=== PATIENT | male | born 1970 | race Caucasian/White ===

== ENCOUNTER 2018-09-17 11:13 | Observation (INO) | payer BC, OTHER ==
[2018-09-17 11:25] VITALS: BMI 30.6
[2018-09-17] MEDS ORDERED: SODIUM CHLORIDE 1,000 ML IV ONE (12:17)
[2018-09-17] MEDS ORDERED: ASPIRIN 81 MG CHEWABLE TABLETS PO ONE (12:17)
--- NOTE | 2018-09-17 12:26 | PDOC ---
History of Present Illness - General History Source: Patient Exam Limitations: No Limitations - History of Present Illness Initial Comments: 09/17/18 12:27 The patient is a 48 year old male with a past medical history of HTN, HLD, SVT s /p ablation, and borderline COPD (restrictive type) sent in today from Dr. Faustin's for evaluation of 2 months of chest pain and shortness of breath. The patient reports that his chest pain and shortness of breath has been getting worse over the past week, notes dyspnea on exertion, pain on inhalation , notes associated cough and chills, and is worse with positional changes. He reports traveling to [place] in 04/24 and reports being diagnosed with bronchitis by a doctor over there. 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 He notes getting a stress test in 03/[address] Dawson which had no findings. Patient denies headache, lightheadedness. Denies fever. Denies nausea, vomiting , diarrhea, abdominal pain. Denies lower extremity edema. Allergies: NKA Social history: Patient reports that he quit smoking tobacco in 2013 but started to smoke again in 02/21 PCP: So Carrillo <Chas Rodríguez - Last Filed: 09/17/18 12:38> <Arron Padilla - Last Filed: 09/17/18 15:28> - General Chief Complaint: Chest Pain Stated Complaint: CHEST PAIN Time Seen by Provider: 09/17/18 11:32 Past History <Chas Rodríguez - Last Filed: 09/17/18 12:38> - Past Medical History Asthma: Yes COPD: Yes CHF: No HTN: Yes Hypercholesterolemia: Yes - Surgical History Gastric Stapling: No - Immunization History Immunization Up to Date: No - Suicide/Smoking/Psychosocial Hx Smoking History: Never smoked Have you smoked in the past 12 months: No Number of Cigarettes Smoked Daily: 5 Information on smoking cessation initiated: No Hx Alcohol Use: No Drug/Substance Use Hx: No Substance Use Type: None <Arron Padilla - Last Filed: 09/17/18 15:28> - Past Medical History Allergies/Adverse Reactions: Allergies Allergy/AdvReac Type Severity Reaction Status Date / Time No Known Allergies Allergy Verified 07/22/15 15:18 Home Medications: Ambulatory Orders NK [No Known Home Medication] 07/22/15 Review of Systems - Review of Systems Able to Perform ROS?: Yes Comments:: 09/17/18 12:27 GENERAL/CONSTITUTIONAL: +chills. No fever. No weakness. HEAD, EYES, EARS, NOSE AND THROAT: No change in vision. No ear pain or discharge. No sore throat. CARDIOVASCULAR: +chest pain. +dyspnea. +dyspnea on exertion RESPIRATORY: +cough. +wheezing. No hemoptysis. GASTROINTESTINAL: No nausea, vomiting, diarrhea or constipation. GENITOURINARY: No dysuria, frequency, or change in urination. MUSCULOSKELETAL: No joint or muscle swelling or pain. No neck or back pain. SKIN: No rash NEUROLOGIC: No headache, vertigo, loss of consciousness, or change in strength/ sensation. ENDOCRINE: No increased thirst. No abnormal weight change. HEMATOLOGIC/LYMPHATIC: No anemia, easy bleeding, or history of blood clots. ALLERGIC/IMMUNOLOGIC: No hives or skin allergy. <Chas Rodríguez - Last Filed: 09/17/18 12:38> - Review of Systems Constitutional: No: Chills, Fever, Unintentional Wgt. Loss HEENTM: No: Nose Congestion, Throat Pain Respiratory: Yes: Cough, Shortness of Breath, SOB with Exertion Cardiac (ROS): Yes: Chest Pain. No: Edema, Syncope ABD/GI: No: Diarrhea, Nausea, Vomiting Neurological: No: Headache All Other Systems: Reviewed and Negative <Arron Padilla - Last Filed: 09/17/18 15:28> *Physical Exam - Vital Signs Last Vital Signs Temp Pulse Resp BP Pulse Ox 98.0 F 74 16 158/77 95 09/17/18 11:22 09/17/18 11:22 09/17/18 11:22 09/17/18 11:22 09/17/18 11:22 - Physical Exam Comments: 09/17/18 12:29 GENERAL: The patient is awake, alert, and fully oriented, in no acute distress. HEAD: Normal with no signs of trauma. EYES: Pupils equal, round and reactive to light, extraocular movements intact, sclera anicteric, conjunctiva clear with no pallor. ENT: Ears normal, nares patent, oropharynx clear without exudates. Moist mucous membranes. CHEST: +reproducible tenderness across the chest. NECK: Normal range of motion, supple without lymphadenopathy, JVD, or masses. LUNGS: +slight crackles at right base. Breath sounds equal. HEART: Regular rate and rhythm, normal S1 and S2 without murmur or rub. ABDOMEN: Soft/nontender/nondistended. BS wnl. No guarding or rebound. No palpable masses. No hepatosplenomegaly. EXTREMITIES: Normal range of motion, no edema. No clubbing or cyanosis. No cords, erythema, or tenderness. NEUROLOGICAL: Cranial nerves II through XII grossly intact. Normal speech, normal gait. PSYCH: Normal mood, normal affect. SKIN: Warm, Dry, normal turgor, no rashes or lesions noted. <Chas Rodríguez - Last Filed: 09/17/18 12:38> - Vital Signs Last Vital Signs Temp Pulse Resp BP Pulse Ox 98.0 F 74 16 158/77 95 09/17/18 11:22 09/17/18 11:22 09/17/18 11:22 09/17/18 11:22 09/17/18 11:22 <Arron Padilla - Last Filed: 09/17/18 15:28> Moderate Sedation - Procedure Monitoring Vital Signs: Procedure Monitoring Vital Signs Temperature 98.0 F 09/17/18 11:22 Pulse Rate 74 09/17/18 11:22 Respiratory Rate 16 09/17/18 11:22 Blood Pressure 158/77 09/17/18 11:22 O2 Sat by Pulse Oximetry (%) 95 09/17/18 11:22 <Chas Rodríguez - Last Filed: 09/17/18 12:38> - Procedure Monitoring Vital Signs: Procedure Monitoring Vital Signs Temperature 98.0 F 09/17/18 11:22 Pulse Rate 74 09/17/18 11:22 Respiratory Rate 16 09/17/18 11:22 Blood Pressure 158/77 09/17/18 11:22 O2 Sat by Pulse Oximetry (%) 95 09/17/18 11:22 <Arron Padilla - Last Filed: 09/17/18 15:28> Heart Score/ECG Review - History History: Moderately suspicious - Electrocardiogram EKG: Normal - Age Age: 45-65 - Risk Factors Based on the list above the patient has:: 1-2 risk factors - Troponin Troponin: </= normal limit - Score Heart Score - Total: 3 #1 ECG reviewed & interpreted by me at: 11:18 General ECG Interpretation: Sinus Rhythm, Normal Rate (73), Normal Intervals ( qtc 429), No acute ischemic changes Compared to previous ECG there are: No significant change (c/w EKG same day at 10:36 from PCP office) <Arron Padilla - Last Filed: 09/17/18 15:28> ED Treatment Course - LABORATORY CBC & Chemistry Diagram: 09/17/18 12:30 09/17/18 12:30 - RADIOLOGY Radiology Studies Ordered: Category Date Time Status CHEST CTA [CT] Stat CT Scan 09/17/18 12:19 Ordered CHEST PA & LAT [RAD] Stat Radiology 09/17/18 12:20 Ordered <Arron Padilla - Last Filed: 09/17/18 15:28> Medical Decision Making - Medical Decision Making 09/17/18 12:24 48-year-old male with history of hypertension and high cholesterol presents with 2 months of crescendo exertional chest pain and dyspnea on exertion, peaked today with worsening chest pain. Reportedly had normal stress test about 6 months ago, reports associated musculoskeletal pain and pleuritic pain with his symptoms. Question ACS versus primary pulmonary pathology (question reactive airway versus bronchitis) versus musculoskeletal versus anxiety. Given risk factors, will need cardiac workup EKG, chest x-ray Aspirin Perform CTA chest given travel last 3 months and worsening dyspnea on exertion Admission for cardiac workup 09/17/18 15:27 labs wnl, including trop. Cr normal so will proceed directly to CTA chest (defer cxr which wasn't performed yet). Pt comfortable and eating a sandwich, cp free. Accepted for obs tele admission by Dr. Sanchez, covering Dr. Queen - signout given to Dr. George <Arron Padilla - Last Filed: 09/17/18 15:28> *DC/Admit/Observation/Transfer <Chas Rodríguez - Last Filed: 09/17/18 12:38> - Discharge Dispostion Decision to Admit order: Yes <Arron Padilla - Last Filed: 09/17/18 15:28> Diagnosis at time of Disposition: Precordial chest pain - Discharge Dispostion Condition at time of disposition: Stable - Referrals Referrals: So Carrillo [Primary Care Provider] - - Patient Instructions - Post Discharge Activity
[2018-09-17] MEDS ORDERED: ASPIRIN 81 MG CHEWABLE TABLETS ONE (12:31)
[2018-09-17 13:10] LABS: BASO % 0.4 % (0-2.0); EOS % 3.8 % (0-4.5); HEMATOCRIT 42.9 % (35.4-49); HEMOGLOBIN 14.8 GM/dL (11.7-16.9); LYMPH % 47.3 % (8-40); MCH 29.5 pg (25.7-33.7); MCHC 34.4 g/dl (32.0-35.9); MEAN CELL VOLUME 85.9 fl (80-96); MEAN PLT VOLUME 10.6 fl (7.5-11.1); MONO % 4.9 % (3.8-10.2); NEUT % 43.6 % (42.8-82.8); PLATELET COUNT 170 K/MM3 (134-434); RDW 12.6 % (11.9-15.9); WHITE BLOOD COUNT 6.8 K/mm3 (4.0-10.0)
[2018-09-17 13:28] LABS: INR 0.98 (0.83-1.09); PROTHROMBIN TIME (PATIENT) 11.6 SEC (9.7-13.0)
[2018-09-17 13:49] LABS: ALBUMIN 3.8 g/dl (3.4-5.0); ALK PHOS 124 U/L (45-117); ANION GAP 6 MMOL/L (8-16); BILIRUBIN,TOTAL 0.3 mg/dL (0.2-1); BLOOD UREA NITROGEN 16 mg/dL (7-18); CALCIUM 8.4 mg/dL (8.5-10.1); CHLORIDE 105 mmol/L (98-107); CO2 28 mmol/L (21-32); GLUCOSE,RANDOM 115 mg/dL (74-106); MAGNESIUM 2.2 mg/dL (1.8-2.4); POTASSIUM 3.9 mmol/L (3.5-5.1); SGOT/AST 23 U/L (15-37); SGPT/ALT 37 U/L (13-61); SODIUM 138 mmol/L (136-145); TOT PROT 7.6 g/dl (6.4-8.2)
--- NOTE | 2018-09-17 16:34 | HP ---
Admitting History and Physical - Admission Chief Complaint: came in from dr nathan office for chest pain History of Present Illness: he patient is a 48 year old male with a past medical history of HTN, HLD, SVT s/ p ablation, and borderline COPD (restrictive type) sent in today from Dr. Faustin's for evaluation of 2 months of chest pain and shortness of breath. The patient reports that his chest pain and shortness of breath has been getting worse over the past week, notes dyspnea on exertion, pain on inhalation , notes associated cough and chills, and is worse with positional changes. He reports traveling to [place] in 04/24 and reports being diagnosed with bronchitis by a doctor over there. 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 He notes getting a stress test in 03/[address] Dawson which had no findings. per patient his shortness of breath and chest pain getting worse and worse on deep inspiration, History Source: Patient, Medical Record - Past Medical History Cardiovascular: Yes: HTN, Hyperlipdemia Pulmonary: Yes: COPD - Smoking History Smoking history: Never smoked Have you smoked in the past 12 months: No Aproximately how many cigarettes per day: 5 - Alcohol/Substance Use Hx Alcohol Use: No Home Medications - Allergies Allergies/Adverse Reactions: Allergies Allergy/AdvReac Type Severity Reaction Status Date / Time No Known Allergies Allergy Verified 07/22/15 15:18 - Home Medications Home Medications: Ambulatory Orders NK [No Known Home Medication] 07/22/15 Family Disease History - Family Disease History Family Disease History: Diabetes: Father, Heart Disease: Father Review of Systems - Review of Systems Cardiovascular: reports: Chest Pain Physical Examination Vital Signs: Vital Signs Temperature 98.0 F 09/17/18 11:22 Pulse Rate 74 09/17/18 11:22 Respiratory Rate 16 09/17/18 11:22 Blood Pressure 158/77 09/17/18 11:22 O2 Sat by Pulse Oximetry (%) 95 09/17/18 11:22 Constitutional: Yes: Calm Cardiovascular: Yes: Regular Rate and Rhythm, S1, S2 Respiratory: Yes: Other (poor inspiratory effort) Gastrointestinal: Yes: Normal Bowel Sounds, Soft Edema: No Neurological: Yes: Alert, Oriented Labs: CBC, BMP 09/17/18 12:30 09/17/18 12:30 Imaging - Results Cat Scan: Pending Problem List - Problems (1) Chest pain Assessment/Plan: tele observation cardiology CTA r/p PE echo monitor for aryhtmia CE 3 sets lipid profile dvt px [id number] Code(s): R07.9 - CHEST PAIN, UNSPECIFIED (2) HTN (hypertension) Assessment/Plan: norvasc 10mg Code(s): I10 - ESSENTIAL (PRIMARY) HYPERTENSION (3) HLD (hyperlipidemia) Assessment/Plan: atrovastatin 10mg omega 3 fish oil lipid profile Code(s): E78.5 - HYPERLIPIDEMIA, UNSPECIFIED
[2018-09-17] MEDS ORDERED: HEPARIN NA (PORCINE) 5,000 UNITS/ML 1ML VIAL ONE (22:34)
[2018-09-17] MEDS: HEPARIN NA (PORCINE) 5,000 UNITS/ML 1ML VIAL SQ SCH (22:38)
[2018-09-17] MEDS: ATORVASTATIN CA 10 MG TABLET (FP) PO SCH (22:39)
[2018-09-18 06:41] LABS: BASO % 0.2 % (0-2.0); EOS % 1.6 % (0-4.5); HEMATOCRIT 42.6 % (35.4-49); HEMOGLOBIN 14.4 GM/dL (11.7-16.9); MCH 28.9 pg (25.7-33.7); MCHC 33.8 g/dl (32.0-35.9); MEAN CELL VOLUME 85.4 fl (80-96); MEAN PLT VOLUME 10.2 fl (7.5-11.1); MONO % 3.5 % (3.8-10.2); NEUT % 49.7 % (42.8-82.8); PLATELET COUNT 165 K/MM3 (134-434); RBC 4.99 M/mm3 (4.00-5.60); RDW 12.9 % (11.9-15.9); WHITE BLOOD COUNT 5.5 K/mm3 (4.0-10.0)
[2018-09-18 07:12] LABS: CHOLESTEROL 127 mg/dL (50-200); HDL CHOLESTEROL 30 mg/dL (40-60); TRIGLYCERIDES 168 mg/dL (0-150)
[2018-09-18 07:19] LABS: PROTHROMBIN TIME (PATIENT) 11.8 SEC (9.7-13.0)
[2018-09-18 07:20] LABS: ACTIVATED PTT 34.4 SECONDS (25.2-36.5)
[2018-09-18 09:02] LABS: ALBUMIN 3.6 g/dl (3.4-5.0); ALK PHOS 121 U/L (45-117); ANION GAP 6 MMOL/L (8-16); BILIRUBIN,TOTAL 0.4 mg/dL (0.2-1); CALCIUM 8.6 mg/dL (8.5-10.1); CHLORIDE 108 mmol/L (98-107); CO2 26 mmol/L (21-32); CREATININE 1.1 mg/dL (0.55-1.3); GLUCOSE,RANDOM 155 mg/dL (74-106); MAGNESIUM 2.1 mg/dL (1.8-2.4); PHOSPHOROUS 2.5 mg/dL (2.5-4.9); POTASSIUM 3.9 mmol/L (3.5-5.1); SGPT/ALT 33 U/L (13-61); SODIUM 140 mmol/L (136-145); TOT PROT 6.9 g/dl (6.4-8.2)
--- NOTE | 2018-09-18 09:53 | CON.CARD ---
Consult Consult Specialty:: Cardiology Referred by:: Dr. Sanchez Reason for Consultation:: chest pain - History of Present Illness Chief Complaint: Chest pain History of Present Illness: 48 M with PMH HTN, hyperlipidemia, BPH, COPD, smoker, s/p SVT ablation 2014, moderate sleep apnea with known heart block during sleep due to hypoxia presents to ER with central chest pain worse with movement and positional change. Tender to touch. Not exertional. No SNOWDEN No palps No edema or CHF sx - History Source History Provided By: Patient - Past Medical History Cardio/Vascular: Yes: HTN, Hyperlipdemia Pulmonary: Yes: COPD, Sleep Apnea Gastrointestinal: No: Ascites, Cancer, Constipation, Crohn's Disease, Diverticulitis, Diverticulosis, Esophageal Varices, Gastritis, GERD, GI Bleed, Hemorrhoids, Hiatal Hernia, Inflamatory Bowel Disease, Irritable Bowel Disease, Pancreatitis, Peptic Ulcer Disease, Ulcerative Colitis, Other Hepatobiliary: No: Cirrhosis, Cholelithiasis, Cholecystitis, Choledocholithiasis , Hepatitis A, Hepatitis B, Hepatitis C, Other Renal/: No: Renal Failure, Renal Inusuff, BPH, Cancer, Hematuria, Hemodialysis , Neurogenic Bladder, Renal Calculi, UTI, Other Heme/Onc: No: Anemia, B12 Deficiency, Bleeding Disorder, Cancer, Current Chemotherapy, Current Radiation Therapy, Hemochromatosis, Hypercoaguable State, Myeloproliferative Synd, Sickle Cell Disease, Sickle Cell Trait, Thrombocytopenia, Other Infectious Disease: No: AIDS, C-Diff, Herpes Zoster, HIV, MRSA, STD's, Tuberculosis, VREF, Other Psych: No: Addictions, Anxiety, Bipolar, Depression, Panic, Psychosis, Schizophrenia, Other Musculoskeletal: No: Bursitis, Chronic low back pain, Hemiparesis, Hemiplegia, Osteoarthritis, Paraplegia, Other Rheumatology: No: Fibromyalgia, Gout, Lupus, Rheumatoid Arthritis, Sarcoidosis, Vasculitis, Other ENT: No: Allergic Rhinitis, Sinusitis, Other Endocrine: No: [place]'s Disease, [place]'s Disease, Diabetes Insipidus, Diabetes Mellitus, Hyperparathyroidism, Hyperthyroidism, Hypothyroidism, Osteopenia, SIADH, Other - Past Surgical History Additional Surgical History: SVT ablation - Alcohol/Substance Use Hx Alcohol Use: No - Smoking History Smoking history: Never smoked Have you smoked in the past 12 months: No Aproximately how many cigarettes per day: 5 - Social History Usual Living Arrangement: Alone ADL: Independent History of Recent Travel: No Home Medications - Allergies Allergies/Adverse Reactions: Allergies Allergy/AdvReac Type Severity Reaction Status Date / Time No Known Allergies Allergy Verified 07/22/15 15:18 - Home Medications Home Medications: Ambulatory Orders Albuterol Sulfate Inhaler - [Ventolin Hfa Inhaler -] 1 - 2 inh PO Q4H 09/17/18 Amlodipine Besylate 5 mg PO ASDIR 09/17/18 Atorvastatin Ca [Lipitor] 10 mg PO HS 09/17/18 Benzonatate 100 mg PO ASDIR 09/17/18 Budesonide/Formeterol Fumarate [SYMBICORT 160/4.5mcg -] 1 inh IH ASDIR 09/17/18 Budesonide/Formeterol Fumarate [SYMBICORT 160/4.5mcg -] 1 inh PO ASDIR 09/17/18 Cholecalciferol (Vitamin D3) [Vitamin D3] 5,000 unit PO ASDIR 09/17/18 Hydrochlorothiazide [Hctz -] 12.5 mg PO ASDIR 09/17/18 Naproxen [Naprosyn] 500 mg PO ASDIR 09/17/18 Tamsulosin HCl [Flomax] 0.4 mg PO DAILY 09/17/18 Tiotropium [place] [Spiriva] 1 inh PO DAILY 09/17/18 Family Disease History - Family Disease History Family Disease History: Diabetes: Father, Heart Disease: Father Review of Systems Findings/Remarks: see HPI - Review of Systems Constitutional: reports: No Symptoms Eyes: reports: No Symptoms HENT: reports: No Symptoms Neck: reports: No Symptoms Cardiovascular: reports: Chest Pain Respiratory: denies: No Symptoms, Cough, Exercise Intolerance, Hemoptysis, Orthopnea, PND, Snoring, SOB, SOB on Exertion, Wheezing, Other Gastrointestinal: denies: No Symptoms, Abdominal Pain, Bloating, Constipation, Diarrhea, Dysphagia, Indigestion, Melena, Nausea, Rectal Bleeding, Vomiting, Vomiting Blood, Other Genitourinary: denies: No Symptoms, Burning, Discharge, Dysuria, Flank Pain, Frequency, Hematuria, Incontinence, Lesions, Menses, Pain, Testicular Mass, Testicular Pain, Testicular Swelling, Urgency, Vaginal Bleeding, Other Breasts: denies: No Symptoms Reported, See HPI, Breast Implants, Discharge from Nipple, Lumps, Pain, Skin Changes, Other Musculoskeletal: denies: No Symptoms, Back Pain, Crepitus, Decreased ROM, Extremity Pain, Joint Pain, Joint Swelling, Muscle Pain, Muscle Cramps, Muscle Weakness, Other Integumentary: denies: No Symptoms, Blister, Bruising, Change in Color, Eczema, Erythema, Incision, Lesions, Lump, Pallor, Pruritis, Rash, Wound, Other Neurological: denies: No Symptoms, Change in LOC, Change in Speech, Confusion, Dizziness, Headache, Incoordination, Numbness, Parasthesia, Pre-Existing Deficit , Seizure, Syncope, Tremors, Unsteady Gait, Weakness, Other Endocrine: denies: No Symptoms, Excessive Sweating, Flushing, Increased Hunger, Increased Thirst, Intolerance to Cold, Intolerance to Heat, Unexplained Weight Gain, Unexplained Weight Loss, Other Hematology/Lymphatic: denies: No Symptoms, Easily Bruised, Excessive Bleeding, Swollen Glands, Other Psychiatric: denies: No Symptoms, Altered Sleep Pattern, Anxiety, Depression, Hallucinations, Panic, Paranoia, Suicidal, Other - Risk Factors Known Risk Factors: Yes: Hypertension, Smoking Vital Signs: Vital Signs Temperature 98.5 F 09/18/18 06:53 Pulse Rate 103 H 09/18/18 06:53 Respiratory Rate 17 09/18/18 06:53 Blood Pressure 150/90 09/18/18 06:53 O2 Sat by Pulse Oximetry (%) 98 09/18/18 06:53 Constitutional: Yes: No Distress, Calm Eyes: Yes: Conjunctiva Clear, EOM Intact HENT: Yes: Atraumatic, Normocephalic Neck: Yes: Trachea Midline Respiratory: Yes: CTA Bilaterally Gastrointestinal: Yes: Soft Cardiovascular: Yes: Regular Rate and Rhythm JVD: No Carotid Bruit: No PMI: Non-Displaced Heart Sounds: Yes: S1, S2 Musculoskeletal: Yes: Other (tender to touch over anterior precordium) Edema: No Peripheral Pulses WNL: Yes Neurological: Yes: Alert, Oriented ...Motor Strength: WNL - Other Data Labs, Other Data: CBC, BMP 09/18/18 05:30 09/18/18 05:30 INR, PTT INR 1.00 (0.83-1.09) 09/18/18 05:30 Troponin, BNP 09/17/18 09/18/18 12:30 05:30 Troponin I < 0.02 < 0.02 Troponin, BNP 09/17/18 09/18/18 12:30 05:30 Troponin I < 0.02 < 0.[address] changes. Short NV Echo: Pending Ejection Fraction %: LVEF > or = 40 % Imaging - Results Cat Scan: Report Reviewed EKG: Image Reviewed Problem List - Problems (1) Chest pain Code(s): R07.9 - CHEST PAIN, UNSPECIFIED Qualifiers: Chest pain type: precordial pain Qualified Code(s): R07.2 - Precordial pain (2) HLD (hyperlipidemia) Code(s): E78.5 - HYPERLIPIDEMIA, UNSPECIFIED (3) HTN (hypertension) Code(s): I10 - ESSENTIAL (PRIMARY) HYPERTENSION (4) Supraventricular tachycardia Code(s): I47.1 - SUPRAVENTRICULAR TACHYCARDIA Assessment/Plan IMP: Atypical CP, seems musculoskeletal Known moderate [place] with nocturnal pauses and heart block HTN HL Smoker Hx SVT ablation REC: Echo and ETT today. If negative, ok for d/c home. Compliance with CPAP emphasized. Thank you.
[2018-09-18] MEDS: HEPARIN NA (PORCINE) 5,000 UNITS/ML 1ML VIAL SQ SCH ×2 (09:54→22:15)
[2018-09-18] MEDS ORDERED: amLODIPine BESYLATE 10 MG TABLET (FP) PO SCH (10:00)
[2018-09-18] MEDS ORDERED: ASPIRIN COATED 81 MG TABLET.EC PO SCH (10:00)
[2018-09-18 10:12] LABS: BLOOD UREA NITROGEN 17 mg/dL (7-18); SGOT/AST 16 U/L (15-37)
--- NOTE | 2018-09-18 10:28 | PN ---
Progress Note, Physician Chief Complaint: Chest pain History of Present Illness: NAD troponins negatve No changes in EKG Seen by Cardiology Pain likely musculoskelatal Going for Echo and stress test today-if negative, will d/c home - Current Medication List Current Medications: Active Medications Amlodipine Besylate (Norvasc -) 10 mg PO DAILY [facility] Last Admin: 09/18/18 09:53 Dose: 10 mg Aspirin (Ecotrin -) 81 mg PO DAILY [facility] Last Admin: 09/18/18 09:52 Dose: 81 mg Atorvastatin Calcium (Lipitor -) 10 mg PO HS [facility] Last Admin: 09/17/18 22:39 Dose: 10 mg Heparin Sodium (Porcine) (Heparin -) 5,000 unit SQ BID [facility] Last Admin: 09/17/18 22:38 Dose: 5,000 unit - Objective Vital Signs: Vital Signs Temperature 98.5 F 09/18/18 06:53 Pulse Rate 103 H 09/18/18 06:53 Respiratory Rate 17 09/18/18 06:53 Blood Pressure 150/90 09/18/18 06:53 O2 Sat by Pulse Oximetry (%) 98 09/18/18 06:53 Constitutional: Yes: Well Nourished, No Distress, Calm, Obese Cardiovascular: Yes: Regular Rate and Rhythm Respiratory: Yes: Regular Gastrointestinal: Yes: Normal Bowel Sounds, Soft, Abdomen, Obese Musculoskeletal: Yes: WNL Extremities: Yes: WNL Edema: No Peripheral Pulses WNL: Yes Neurological: Yes: Alert, Oriented Psychiatric: Yes: Alert, Oriented Labs: CBC, BMP 09/18/18 05:30 09/18/18 05:30 INR, PTT INR 1.00 (0.83-1.09) 09/18/18 05:30 Problem List - Problems (1) Chest pain Assessment/Plan: -Seen by Cardiology -pain more positional -Trops negative -EKG unremarkable -Chest CTA-negative -Echo + stress test today- if negative, d/c home Code(s): R07.9 - CHEST PAIN, UNSPECIFIED Qualifiers: Chest pain type: precordial pain Qualified Code(s): R07.2 - Precordial pain (2) Diabetes Assessment/Plan: -diabetic diet -A1c at 6.5 -start metformin at 500 mg po bid -Education and information provided -encouraged weight loss Code(s): E11.9 - TYPE 2 DIABETES MELLITUS WITHOUT COMPLICATIONS Assessment/Plan see problem list
[2018-09-18] MEDS ORDERED: HYDROCHLOROTHIAZIDE 12.5 MG CAPSULE (FP) PO SCH (10:30)
[2018-09-18] MEDS ORDERED: TAMSULOSIN HCL 0.4 MG CAP PO SCH (10:30)
[2018-09-18] MEDS ORDERED: ALBUTEROL SO4 2.5/IPRATROPIUM 0.5 INH SOL 3 ML VIAL.NEB. NEB PRN (10:31)
[2018-09-18] MEDS ORDERED: KETOROLAC TROMETHAMINE 30 MG/1 ML VIAL IVPUSH ONE (11:05)
[2018-09-18] MEDS ORDERED: PANTOPRAZOLE 40 MG TABLET (FP) PO SCH (11:15)
--- NOTE | 2018-09-18 11:48 | ECHO ---
Name: JOSE DE JESUS KEANE Exam:Adult Echocardiogram Study Date: 09/18/2018 07:58 AM Age: 48 yrs Reason For Study: GLENDA FOR EJECTION FRACTION Height: 75 in Weight: 245 lb BSA: 2.4 m2 MMode/2D Measurements & Calculations IVSd: 0.94 cm Ao root diam: 3.7 cm LVIDd: 5.4 cm LA dimension: 5.1 cm LVIDs: 2.9 cm ACS: 2.3 cm LVPWd: 1.1 cm IVSs: 1.5 cm LVPWs: 1.4 cm EDV(Teich): 144.3 ml ESV(Teich): 32.6 ml Doppler Measurements & Calculations MV E max ayush: 82.9 cm/sec Ao V2 max: 141.2 cm/sec MV A max ayush: 72.6 cm/sec Ao max P.0 mmHg MV E/A: 1.1 Ao V2 mean: 100.6 cm/sec Ao mean P.6 mmHg Ao V2 VTI: 28.0 cm PI end-d ayush: 100.4 cm/sec Med Peak E' Ayush: 9.1 cm/sec Med E/e': 9.1 Lat Peak E' Ayush: 10.6 cm/sec Lat E/e': 7.8 Procedure A two-dimensional transthoracic echocardiogram with color flow and Doppler was performed. The patient was in normal sinus rhythm during the exam. Left Ventricle The left ventricle is normal in size. Left ventricular systolic function is normal. Ejection Fraction = 70%. E/A reversal consistent with but not diagnostic of poor LV compliance. Right Ventricle The right ventricle is grossly normal size. The right ventricular systolic function is grossly normal . Atria The left atrium is moderately dilated. Mitral Valve The mitral valve is normal. There is no mitral regurgitation noted. Tricuspid Valve The tricuspid valve is normal. There is trace tricuspid regurgitation. Aortic Valve The aortic valve is normal in structure and function. The aortic valve is trileaflet. No aortic regur gitation is present. Pulmonic Valve The pulmonic valve is not well seen, but is grossly normal. Mild pulmonic valvular regurgitation. Great Vessels The aortic root is normal size. Pericardium/Pleura There is no pericardial effusion. Interpretation Summary Left ventricular systolic function is normal. Ejection Fraction = 70%. The right ventricular systolic function is grossly normal. The left atrium is moderately dilated. There is trace tricuspid regurgitation. Mild pulmonic valvular regurgitation. There is no pericardial effusion. MD Sujit Acharya 09/18/2018 11:47 AM
[2018-09-18] MEDS ORDERED: HYDROCHLOROTHIAZIDE 25 MG TABLET (FP) ONE (15:05)
[2018-09-18] MEDS ORDERED: TAMSULOSIN HCL 0.4 MG CAP ONE (15:06)
[2018-09-18] MEDS ORDERED: metFORMIN HCL 500 MG TABLET (FP) PO SCH (16:30)
[2018-09-18] MEDS ORDERED: metFORMIN HCL 500 MG TABLET (FP) ONE (16:32)
--- NOTE | 2018-09-18 16:32 | EKG ---
Test Reason : Blood Pressure : / mmHG Vent. Rate : 073 BPM Atrial Rate : 073 BPM P-R Int : 194 ms QRS Dur : 096 ms QT Int : 390 ms P-R-T Axes : 021 058 060 degrees QTc Int : 429 ms POOR DATA QUALITY, INTERPRETATION MAY BE ADVERSELY AFFECTED NORMAL SINUS RHYTHM NORMAL ECG WHEN COMPARED WITH ECG OF 22-JUL-2015 15:19, ABERRANT CONDUCTION IS NO LONGER PRESENT [place] INTERVAL HAS DECREASED Confirmed by Luis Carlos Oakley ([id number]) on 09/18/2018 4:31:41 PM Referred By: Confirmed By:Luis Carlos Oakley
--- NOTE | 2018-09-18 16:33 | CON.PULM ---
Consult Consult Specialty:: PULM/CCM Referred by:: WILSON Reason for Consultation:: CP - History of Present Illness Chief Complaint: CP History of Present Illness: 48 M, HTN, HLD, SVT s/p ablation, and (?) COPD, and OSAS diagnosed at [facility] (data is not available). His CPAP device apparently was delivered today. Patient has apparently been worked up by Dr Faustin. Admitted via the ER due to chest pain and shortness of breath. Symptoms of dyspnea on exertion, pain on inhalation, cough, and chills have been progressing over the past week. He also says that [place] where he is exposed to fumes and dust. CTA: No PE / no acute process. - History Source History Provided By: Patient Limitations to Obtaining History: No Limitations - Past Medical History Cardio/Vascular: Yes: HTN, Hyperlipdemia Pulmonary: Yes: Bronchitis, COPD, Sleep Apnea. No: O2 Dependent, Previously Intubated, Pulmonary Embolus, Pulmonary Fibrosis Gastrointestinal: No: Ascites, Cancer, Constipation, Crohn's Disease, Diverticulitis, Diverticulosis, Esophageal Varices, Gastritis, GERD, GI Bleed, Hemorrhoids, Hiatal Hernia, Inflamatory Bowel Disease, Irritable Bowel Disease, Pancreatitis, Peptic Ulcer Disease, Ulcerative Colitis, Other Hepatobiliary: No: Cirrhosis, Cholelithiasis, Cholecystitis, Choledocholithiasis , Hepatitis A, Hepatitis B, Hepatitis C, Other Renal/: No: Renal Failure, Renal Inusuff, BPH, Cancer, Hematuria, Hemodialysis , Neurogenic Bladder, Renal Calculi, UTI, Other Infectious Disease: No: AIDS, C-Diff, Herpes Zoster, HIV, MRSA, STD's, Tuberculosis, VREF, Other Psych: No: Addictions, Anxiety, Bipolar, Depression, Panic, Psychosis, Schizophrenia, Other Musculoskeletal: No: Bursitis, Chronic low back pain, Hemiparesis, Hemiplegia, Osteoarthritis, Paraplegia, Other Rheumatology: No: Fibromyalgia, Gout, Lupus, Rheumatoid Arthritis, Sarcoidosis, Vasculitis, Other ENT: No: Allergic Rhinitis, Sinusitis, Other Endocrine: No: Broome's Disease, Beth's Disease, Diabetes Insipidus, Diabetes Mellitus, Hyperparathyroidism, Hyperthyroidism, Hypothyroidism, Osteopenia, SIADH, Other - Past Surgical History Additional Surgical History: SVT ablation - Alcohol/Substance Use Hx Alcohol Use: No - Smoking History Smoking history: Never smoked Have you smoked in the past 12 months: No Aproximately how many cigarettes per day: 5 - Social History Usual Living Arrangement: Alone ADL: Independent History of Recent Travel: No Home Medications - Allergies Allergies/Adverse Reactions: Allergies Allergy/AdvReac Type Severity Reaction Status Date / Time No Known Allergies Allergy Verified 07/22/15 15:18 - Home Medications Home Medications: Ambulatory Orders Albuterol Sulfate Inhaler - [Ventolin HFA Inhaler -] 1 - 2 inh PO Q4H 09/17/18 Amlodipine Besylate 5 mg PO ASDIR 09/17/18 Atorvastatin Ca [Lipitor] 10 mg PO HS 09/17/18 Budesonide/Formeterol Fumarate [SYMBICORT 160/4.5mcg -] 1 inh IH ASDIR 09/17/18 Budesonide/Formeterol Fumarate [SYMBICORT 160/4.5mcg -] 1 inh PO ASDIR 09/17/18 Cholecalciferol (Vitamin D3) [Vitamin D3] 5,000 unit PO ASDIR 09/17/18 Hydrochlorothiazide [Hctz -] 12.5 mg PO ASDIR 09/17/18 Naproxen [Naprosyn] 500 mg PO ASDIR 09/17/18 Tamsulosin HCl [Flomax -] 0.4 mg PO DAILY 09/17/18 Tiotropium [place] [Spiriva] 1 inh PO DAILY 09/17/18 Pantoprazole Sodium [Protonix -] 40 mg PO DAILY #30 tablet.ec 09/18/18 metFORMIN HCL [Glucophage -] 500 mg PO BID #60 tablet 09/18/18 Family Disease History - Family Disease History Family Disease History: Diabetes: Father, Heart Disease: Father Review of Systems - Review of Systems Constitutional: reports: Chills, Fever Eyes: reports: No Symptoms HENT: reports: No Symptoms Neck: reports: No Symptoms Cardiovascular: reports: Chest Pain, Shortness of Breath. denies: Edema, Palpitations Respiratory: reports: Cough, Snoring, SOB, SOB on Exertion, Wheezing. denies: Hemoptysis Gastrointestinal: reports: No Symptoms Genitourinary: reports: No Symptoms Breasts: reports: No Symptoms Reported Musculoskeletal: reports: No Symptoms Integumentary: reports: No Symptoms Neurological: reports: No Symptoms Endocrine: reports: No Symptoms Hematology/Lymphatic: reports: No Symptoms Psychiatric: reports: No Symptoms Physical Exam Vital Sings: Vital Signs Temperature 98 F 09/18/18 13:12 Pulse Rate 96 H 09/18/18 13:12 Respiratory Rate 18 09/18/18 13:12 Blood Pressure 150/86 09/18/18 13:12 O2 Sat by Pulse Oximetry (%) 98 09/18/18 13:12 Constitutional: Yes: Well Nourished, No Distress Eyes: Yes: Conjunctiva Clear, EOM Intact HENT: Yes: Atraumatic, Normocephalic Neck: Yes: Supple, Trachea Midline Cardiovascular: Yes: Regular Rate and Rhythm Respiratory: Yes: Regular, CTA Bilaterally. No: Accessory Muscle Use, Rales, Rhonchi, SOB, SOB on Exertion, Stridor, Tachypnea, Wheezes ...Inspection: Yes: WNL ...Clubbing: No Gastrointestinal: Yes: Normal Bowel Sounds, Soft Renal/: Yes: WNL Musculoskeletal: Yes: WNL Extremities: Yes: WNL Edema: No Peripheral Pulses WNL: Yes Integumentary: Yes: WNL Neurological: Yes: WNL, Alert, Oriented ...Motor Strength: WNL Psychiatric: Yes: WNL, Alert, Oriented Labs: CBC, BMP 09/18/18 05:30 09/18/18 05:30 Imaging - Results Cat Scan: Report Reviewed, Image Reviewed Problem List - Problems (1) Sleep apnea Code(s): G47.30 - SLEEP APNEA, UNSPECIFIED (2) Diabetes Code(s): E11.9 - TYPE 2 DIABETES MELLITUS WITHOUT COMPLICATIONS (3) HLD (hyperlipidemia) Code(s): E78.5 - HYPERLIPIDEMIA, UNSPECIFIED (4) HTN (hypertension) Code(s): I10 - ESSENTIAL (PRIMARY) HYPERTENSION (5) Chest pain Code(s): R07.9 - CHEST PAIN, UNSPECIFIED Qualifiers: Chest pain type: precordial pain Qualified Code(s): R07.2 - Precordial pain (6) Shortness of breath Code(s): R06.02 - SHORTNESS OF BREATH (7) Supraventricular tachycardia Code(s): I47.1 - SUPRAVENTRICULAR TACHYCARDIA Assessment/Plan Acute on chronic bronchitis, resolving No evidence of PE Symptoms most likely referable to musculoskeletal discomfort No further Pulmonary workup indicted at this point. No Pulmonary contraindication for D/C. Dr Miller
--- NOTE | 2018-09-18 16:45 | TRE ---
Protocol Name : SYD Max Work Load (METS*10) : 118 Time In Exercise Phase : 00:10:06 Max. Systolic BP : 190 mmHg Max Diastolic BP : 80 mmHg Max Heart Rate : 164 BPM Max Predicted Heart Rate : 171 BPM Attending Physician : Reason For Termination : Target Heart Rate Achieved Reason for Test : CHEAT PAIN Stress Protocol : SYD Rest HR : 82 BPM PeakEx METs : 11.8 METS Recovery ECG Response (OLD) : Diagnosis : The patient exercised according to the Syd protocol for 10min. The resting HR of 76 bpm woody to 164bpm respresenting 95% MPHR. Exercise capacity was good. The resting BP of 138/86 woody to 190/80 at peak stress. Thre was no chest pain and exercise was stopped after target HR was reached. Baseline ECG was normal. No ischemic changes were seen with exercise. There were no arrhythmias. Impressions Normal HR response to exercise Normal exercise tolerance for age Normal BP response to exercise Normal stress test Confirmed by Luis Carlos Oakley ([id number]) on 09/18/2018 4:45:36 PM
[2018-09-18 18:15] VITALS: BP 154/89; PULSE 90; TEMP 98.3
[2018-09-18] MEDS ORDERED: HYDROCORTISONE SOD SUCCINATE 100 MG/2 ML VIAL IVPB STA (21:10)
[2018-09-18] MEDS ORDERED: HYDROCORTISONE SOD SUCCINATE 2 ML ONE (21:46)
[2018-09-18] MEDS ORDERED: HEPARIN NA (PORCINE) 5,000 UNITS/ML 1ML VIAL ONE (21:52)
[2018-09-18] MEDS ORDERED: ATORVASTATIN CA 10 MG TABLET (FP) ONE (21:53)
[2018-09-18] MEDS: ATORVASTATIN CA 10 MG TABLET (FP) PO SCH (22:15)
== END 2018-09-19 00:01 | disposition home or self-care (01) ==
LOC: JER 11:13 → JERBED 15:28
PROVIDERS: ADMIT Family Medicine; ATTEND Family Medicine
PROC: 3E033NZ Introduction of Analgesics, Hypnotics, Sedatives into Peripheral Vein, Percutaneous Approach (ICD-10-PCS; principal; 2018-09-17)
PROC: 3E0333Z Introduction of Anti-inflammatory into Peripheral Vein, Percutaneous Approach (ICD-10-PCS; 2018-09-17)
PROC: 3E0337Z Introduction of Electrolytic and Water Balance Substance into Peripheral Vein, Percutaneous Approach (ICD-10-PCS; 2018-09-17)
PROC: 3E033GC Introduction of Other Therapeutic Substance into Peripheral Vein, Percutaneous Approach (ICD-10-PCS; 2018-09-17)
PROC: 3E013GC Introduction of Other Therapeutic Substance into Subcutaneous Tissue, Percutaneous Approach (ICD-10-PCS; 2018-09-17)
DX: R07.2 Precordial pain (principal); I47.1 Supraventricular tachycardia; R06.02 Shortness of breath; I10 Essential (primary) hypertension; E78.5 Hyperlipidemia, unspecified; J44.9 Chronic obstructive pulmonary disease, unspecified; F17.210 Nicotine dependence, cigarettes, uncomplicated; E11.9 Type 2 diabetes mellitus without complications; G47.30 Sleep apnea, unspecified
CPT/HCPCS: 36415; 71275-TC; 80053; 80061; 82550; 82553; 82962; 83036; 83721; 83735; 84100; 84484; 85025; 85027; 85610; 85730; 93005; 93010; 93017; 93018; 93306-TC; 99283-25; G0378; J1644; J7030